=== PATIENT | male | born 1955 | race Two or more races ===

== ENCOUNTER 2025-01-25 12:16 | Emergency (ER) | payer OTHER, MEDICAID, SELFPAY ==
[2025-01-25 12:24] VITALS: PULSE 90; RESP 18; O2SAT 96; BMI 31.0
--- NOTE | 2025-01-25 12:29 | PD.EDRME ---
Rapid Medical Screening Exam RME Arrival date/time: 01/25/25 12:16 Chief Complaint: Headache Time Seen by Provider: 01/25/25 12:39 RME Narrative: A 69-year-old male presents to the ED, [facility] from home, for evaluation after a fall that occurred last night at 10 PM. He reports slipping while descending a few steps, causing him to strike his right clavicle on the railing. This morning, he noted pain and bruising in the area, along with a right-sided headache. He denies loss of consciousness, nausea, vomiting, diarrhea, or dizziness, and has no history of blood thinner use.
--- NOTE | 2025-01-25 12:43 | XR_ITS ---
Examination: CT cervical spine without contrast 2-D sagittal reconstructions 2-D coronal reconstructions 3-D reconstructions. Exam date and time:January 25, 2025 1344 hours INDICATIONS: Ground-level fall today with injury to the neck, neck pain CTDI:vol (mGy) 9.86 DLP: (mGycm) 232 Technique: Multiple 2 mm axial sections of the cervical spine have been obtained. The coronal and sagittal reconstructions have been obtained. 3-D reconstructions have been obtained. Low dose protocols were performed. One or more of the following dose reduction techniques were used; automated exposure control, adjustment of the mA and/or KV according to patient size, use of iterative reconstruction technique. Findings: Axial sections demonstrate intact base of the skull. C1 exhibit satisfactory relationship to the odontoid. No acute cervical vertebral body fracture seen. Alignment posterior spinous processes satisfactory. Impression: No acute cervical fracture.
--- NOTE | 2025-01-25 12:43 | XR_ITS ---
Examination: CT chest, without intravenous contrast. CT abdomen, without intravenous contrast. CT pelvis, without intravenous contrast. 2-D sagittal and coronal reconstructions. 3-D reconstructions. Date and time of exam:January 25, 2025 1352 hours INDICATIONS: Ground-level fall today with into the chest and abdomen, chest pain abdomen pain CTDI vol (mgy) 12.2 DLP (MGycm)996 Technique: Multiple CT images, 3.0 mm slice thickness, obtained chest, abdomen, pelvis, with the high-resolution 64 slice scanner.. Sagittal and coronal 2-D reconstructions are obtained. 3-D reconstructions Low dose protocols were performed. One or more of the following dose reduction techniques were used; automated exposure control, adjustment of the mA and/or KV according to patient size, use of iterative reconstruction technique. Findings: Thoracic aorta pulmonary arteries intact No hemopericardium No pneumothorax pulmonary contusion or hemothorax Manubrium body the sternum thoracic vertebral bodies intact Ribs appear intact No liver splenic or renal laceration, no perinephric hematoma Abdominal aorta intact, no free blood in the abdomen Absent gallbladder Negative for pneumoperitoneum Normal appendix Urinary bladder intact Fat-containing left inguinal hernia Hips bones of the pelvis intact Lumbar vertebral bodies intact IMPRESSION: Thoracic aorta pulmonary arteries intact No hemopericardium, pneumothorax, pulmonary contusion or hemothorax No abdominal parenchymal laceration Abdominal aorta intact No free blood in the abdomen or pelvis Osseous structures appear intact
--- NOTE | 2025-01-25 12:43 | XR_ITS ---
Examination: CT lumbar spine, without contrast. 2-D sagittal reconstructions. 2-D coronal reconstructions. 3-D reconstructions. Date and time of exam:January 25, 2025 at 1352 hours INDICATIONS: Ground-level fall today with injury to the lower back, lower back pain CTDI: vol (mGy):33.3 DLP: (mGycm):1339 Technique: Multiple 1.25 mm axial sections of the lumbar spine have been obtained. 2-D sagittal and coronal reconstructions have been obtained. 3-D reconstructions have been obtained. Low dose protocols were performed. One or more of the following dose reduction techniques were used; automated exposure control, adjustment of the mA and/or KV according to patient size, use of iterative reconstruction technique. Findings: No vertebral body compression fracture Moderate disc narrowing L3-L4 No spondylolisthesis Prominent lumbar spondylosis Lumbar pedicles, laminae, transverse and posterior spinous processes intact L4-L5 severe overall spinal stenosis, axial image 100, including 4 mm central lumbar disc bulge, prominent facet arthropathy and thickening of ligamentum flavum with severe bilateral L4 ganglionic compression IMPRESSION: No acute lumbar fracture
--- NOTE | 2025-01-25 12:43 | XR_ITS ---
Examination: CT brain head without contrast. 2-D sagittal coronal reconstructions Date and time of exam:January 25, 2025 1344 hours INDICATIONS: Ground-level fall today with injury to the head, head pain CTDI: vol (mGy):56.6 DLP: (mGycm):1157 Technique: Multiple CT axial sections of the brain have been obtained, 5 mm slice thickness. Contrast has not been administered. 2-D sagittal, coronal reconstructions have been obtained Low dose protocols were performed. One or more of the following dose reduction techniques were used; automated exposure control, adjustment of the mA and/or KV according to patient size, use of iterative reconstruction technique. Findings: No significant ventricular enlargement. Intra-axial or extra-axial hemorrhage density is not seen. No mass effect or midline shift Basal cisterns are not remarkable. Fourth ventricle is midline. Cranial vault intact. Impression: Negative for acute hemorrhage, mass effect or midline shift
--- NOTE | 2025-01-25 12:44 | XR_ITS ---
Examination: AP chest single view TECHNIQUE: AP portable semiupright chest single view Exam date and time: January 25, 2025 at 1202 hours INDICATIONS: Ground-level fall today with injury to the chest, chest pain FINDINGS: No significant cardiac enlargement. Reduced inspiratory effort. No pneumothorax. Clavicles ribs appear intact IMPRESSION: No pneumothorax. Clavicles ribs appear intact.
--- NOTE | 2025-01-25 12:46 | EDNOTE_ITS ---
ED Headache RME/HPI General Chief Complaint: Headache Stated Complaint: HEADACHE Time Seen by Provider: 01/25/25 12:39 Arrival date/time: 01/25/25 12:16 69 year old male present to emergency room with c/o of GLF last night at 10pm at home Pt report walking down stairs when slipped and felt into the railing of the stairs. Pt report right sided headache. Pt denies any loc, nausea,vomiting, dizziness, blood thinners. LOCATION: right headache SEVERITY: Symptoms are described as being severe with limitations on activities of daily living QUALITY: Symptoms are described as being dull or achy CONTEXT: The patient is unable to identify any inciting events. DURATION/TIMING: The symptoms started approximately one day ago and have been constant since then and have been progressive getting worse. ASSOCIATED SYMPTOMS: The patient is unable to identify any other associated symptoms. MODIFYING FACTORS: The patient is unable to identify any alleviating or aggravating symptoms. PERTINENT ROS: Headache is gradual in onset, not maximal intensity at onset, not associated with syncope or presyncope, not the first or the worst, not associated with head trauma or anticoagulant use, no associated focal neurological deficits, denies associated neck pain, no recent fevers, no unexplained rashes, no recent foreign travel, immunized, no unexplained nausea or vomiting. REVIEW OF SYSTEMS: See History of Present Illness - with the exception of those mentioned in the history of present illness, all other systems reviewed and reported as negative GENERAL: In general the patient is awake, interactive, in an emergency department gurney. HEAD/EYES/EARS/NOSE/THROAT: normo-cephalic, atraumatic, mucus membranes are moist, anicteric, palpebral conjunctiva is pink, trachea is midline. CARDIOVASCULAR: Right upper chest pain/collar bone tenderness, regular rate and regular rhythm, no murmurs, heart sounds are not distant, strong pulses in all four extremities that are equal and symmetric bilateral upper and lower extremities, normal capillary refill. CHEST/PULMONARY: normal chest rise and fall, good air movement, clear to auscultation bilaterally, normal inspiratory to expiratory ratios without evidence of respiratory distress. NECK: No midline/Paraspinal tenderness, no step off ROM/Strenght intact No Kernig and bruzinski sign. No trauma ABDOMEN: soft, not tender, no masses appreciated BACK: normal range of motion without pain. NEUROLOGICAL: cranio-facial features are symmetric, moves all four extremities equally without obvious limitations or weakness. EXTREMITY: no tenderness to palpation over the long bones or large joints of the bilateral upper and lower extremities, no joint swelling, no joint erythema, no signs of trauma, no unilateral leg swelling and no peripheral edema. SKIN: warm, dry, well-perfused, no jaundice, no rash, no telangiectasias or petechia. PSYCH: calm, cooperative, no evidence of psychosis or agitation RME / HPI RME / HPI Narrative: 69 year old male presents to the ED [facility] from home for evaluation after fall occurring last night at 10pm. States he slipped and fell while walking down a few steps that caused him to hit hit right clavicle on the railing. This morning noted pain bruising to that area. Accompanied by right sided headache. Denied any LOC. Denies n/v/d, dizziness. No blood thinner use. Related Data Allergies Allergy/AdvReac Type Severity Reaction Status Date / Time No Known Drug Allergies Allergy Verified 01/25/25 12:47 Course Course Course Narrative: This presents with head trauma after a mechanical GLF. DDX includes MSK trauma, facial fractures, ICH or traumatic SAH, C-spine injury. Doubt other extracranial causes of injury. Considered nonmechanical causes of fall such as syncope, primary cardiopulmonary etiologies such as ACS/PE, but think these are unlikely. Will get head/face/neck/lumbar CT, cxr, pain control, C-collar, basic labs, reassess, discharge Quality Measures none Orders Category Date Time Status Insert IV STAT Care 01/25/25 12:45 Active Rigid cervical collar X1 Care 01/25/25 13:[address] cervical spine wo con Stat Exams 01/25/25 12:[address] chest abdomen pelvis wo Stat Exams 01/25/25 12:[address] head/brain wo con Stat Exams 01/25/25 12:[address] lumbar spine wo con Stat Exams 01/25/25 12:43 Completed XR chest 1V portable Stat Exams 01/25/25 12:44 Completed CBC Stat Lab 01/25/25 12:54 Completed CMP [Comprehensive Metabolic Panel] Stat Lab 01/25/25 12:54 Completed Lipase Stat Lab 01/25/25 12:54 Completed Troponin I Stat Lab 01/25/25 12:54 Completed Ketorolac Inj [Toradol Inj] Med 01/25/25 15:01 Discontinued 15 mg IVP X1 ONE Morphine Inj Med 01/25/25 12:45 Discontinued 4 mg IVP X1 ONE Ondansetron Inj [Zofran Inj] Med 01/25/25 12:45 Discontinued 4 mg IV X1 ONE Reevaluation(s) Reevaluation #1: pt is feeling better and comfortable to go home Vital Signs Vital signs: Vital Signs Temperature 98.4 F 01/25/25 12:50 Pulse Rate 82 01/25/25 12:50 Respiratory Rate 16 01/25/25 12:50 Blood Pressure 177/112 H 01/25/25 12:50 Pulse Oximetry (%) 94 L 01/25/25 12:50 Oxygen Delivery Method Room Air 01/25/25 12:50 Headache MDM Narrative MDM Narrative:: DISPOSITION: Emergency Department nursing documentation was reviewed including triage complaint, associated symptoms, administration of medications, response to therapy and vital signs. Given the history, physical exam, and review of any performed laboratory and imaging studies the patient is being discharged in stable condition. I advised the patient to followup with their outpatient provider for further diagnostic testing and treatments as needed. Strict return precautions were given. Patient data External records reviewed:: [facility] previous records Clinical information provided by:: patient and EMS Social determinants that could affect healthcare access:: none Patient has the following chronic illnesses:: as stated above How is presenting disease/condition affected by chronic disease/condition?: no chronic disease Evaluation data The following diagnostics were reviewed and interpreted by me:: lab results, radiology exam(s) and EKG tracing(s) Lab and/or radiology exams considered but not ordered:: n/a Interpretation Summary: cbc/cmp no acute findings trop wnl ct head, chest, cervical, abd, lumbar: no acute findings xray: nad Medications / Prescriptions Medications or Prescriptions considered but not ordered:: n/a Medication administrations:: Medication Administration History Discontinued Medications Ketorolac Tromethamine (Ketorolac Inj 30 Mg/Ml Vial) 15 mg IVP X1 ONE Stop: 01/25/25 15:02 Morphine Sulfate (Morphine Sulf Inj 10 Mg/Ml Vial) 4 mg IVP X1 ONE Stop: 01/25/25 12:46 Last Admin: 01/25/25 13:00 Dose: 4 mg Documented By: DB Ondansetron HCl (Ondansetron Inj 2 Mg/Ml Inj 2 Ml) 4 mg IV X1 ONE; Protocol Stop: 01/25/25 12:46 Last Admin: 01/25/25 13:00 Dose: 4 mg Documented By: WILLAM morphine, zofran Consultations Consultation(s) initiated? (list below): No Diagnosis Differential diagnosis headache: migraine, tension headache, subarachnoid hemorrhage, headache, postconcussion syndrome and other (collarbone fx, lumbar/hip fx , pthx ) Most likely diagnosis given after review of the tests above:: head injury, chest contusion Admission Indicated Admission indicated?: not indicated Admission Request Was there a request for admission?: No Disposition Plan Disposition Plan: Discharge Discharge Attestation Discharge Attestation: The patient and all family members were given an opportunity to ask questions and understood the discharge instructions. Discharge instructions specifically effects, indications for sooner follow up or return to the emergency department, and the expected course of current diagnosis. Patient condition: Stable Discharge Plan Plan Patient Disposition: HOME (Self Care) Prescriptions/Referrals Referrals: Danna Valiente MD [Primary Care Provider] - In 1 week Problem List Clinical Impression: Head injury, Chest wall contusion, Back pain Patient/Caregiver Discharge Instructions Education Materials: ED Back Care Tips, ED Chest Wall Contusion Print Language: Turkmen Stand Alone Forms: [place] Award Info., Patient Portal Info Letter
[2025-01-25 12:50] VITALS: BP 177/112; PULSE 82; RESP 16; TEMP 36.9; O2SAT 94
[2025-01-25] MEDS: MORPHINE SULF INJ 10 MG/ML VIAL 4 MG IVP (13:00)
[2025-01-25] MEDS: ONDANSETRON INJ 2 MG/ML INJ 2 ML 4 MG IV (13:00)
[2025-01-25 13:16] LABS: Basophils % (Auto) 0 % (0-2.5); Eosinophils # (Auto) 0.3 Thou/mm3 (0.0-0.5); Eosinophils % (Auto) 3 % (0-10); Hematocrit 47.5 % (41.0-53.0); Hemoglobin 16.9 g/dL (13.5-16.0); Immature Granulocytes % (Auto) 0 % (0-0); Immature Granulocytes Auto 0.04 Thou/mm3 (0.00-0.00); Lymphocytes # (Auto) 2.5 Thou/mm3 (1.0-4.8); Lymphocytes % (Auto) 26 % (10-50); Mean Corpuscular HGB Conc 35.6 g/dl (31.0-37.0); Mean Corpuscular Hemoglobin 32.6 pg (25.0-35.0); Mean Corpuscular Volume 92 fL (80-100); Monocytes # (Auto) 0.8 Thou/mm3 (0.0-0.8); Monocytes % (Auto) 8 % (0-12); Neutrophils # (Auto) 6.1 Thou/mm3 (1.8-7.7); Neutrophils % (Auto) 63 % (37-80); Nucleated Red Blood Cell % 0 /100 WBC (0); Platelet Count 250 Thou/mm3 (140-440); RDW Standard Deviation 42.7 fL (35.1-43.9); Red Blood Count 5.19 Miln/mm3 (4.50-5.90); White Blood Count 9.7 Thou/mm3 (3.8-10.6)
[2025-01-25 13:37] LABS: Alanine Aminotransferase 39 U/L (10-49); Albumin, Serum 4.6 gm/dL (3.4-4.8); Albumin/Globulin Ratio 1.5 (1.2-2.2); Alkaline Phosphatase 124 U/L (46-116); Anion Gap 10 (7-16); Aspartate Amino Transferase 33 U/L (0-34); BUN/Creatinine Ratio 14 Ratio (12-20); Bilirubin,Total 3.4 mg/dL (0.3-1.2); Blood Urea Nitrogen 13 mg/dL (9-23); Calcium 9.6 mg/dL (8.3-10.6); Calcium (Corrected) 9.6 mg/dL (8.5-10.1); Carbon Dioxide 26.8 mMol/L (20.0-31.0); Chloride 101 mMol/L (98-107); Creatinine (Component) 0.9 mg/dL (0.6-1.3); Estimated Creatinine Clearance 85.7 mL/min (>60); Globulin 3.1 gm/dL (2.3-3.5); Glucose 111 mg/dL (74-106); Lipase 37 U/L (12-53); Osmolality,Calculated 276 (275-295); Potassium 3.8 mMol/L (3.4-5.1); Sodium 138 mMol/L (136-145); Total Protein 7.7 gm/dL (5.7-8.2); Troponin I < 0.020 ng/mL (0.0-0.045); eGFR > 60 See Note
[2025-01-25 15:05] VITALS: BP 134/88; PULSE 76; RESP 14; TEMP 36.5; O2SAT 95
[2025-01-25] MEDS: KETOROLAC INJ 30 MG/ML VIAL 15 MG IVP (15:09)
--- NOTE | 2025-01-25 16:12 | PC.CC ---
Internal Communications Specialist supported with transport arrangement via [facility].
== END 2025-01-25 16:01 | disposition home or self-care (01) ==
PROVIDERS: Physician Assistant; Emergency Provider Emergency Medicine; PCP Family Medicine
DX: S20.219A Contusion of unspecified front wall of thorax, initial encounter (principal); S09.90XA Unspecified injury of head, initial encounter; S19.9XXA Unspecified injury of neck, initial encounter; S39.92XA Unspecified injury of lower back, initial encounter; W18.30XA Fall on same level, unspecified, initial encounter
CPT/HCPCS: 36415; 70450; 71045; 71250; 72125; 72131; 74176; 80053; 83690; 84484; 85025; 96374; 96375; 99284; J1885; J2270; J2405